=== PATIENT | female | born 1990 | race Caucasian/White ===

== ENCOUNTER 2021-09-24 10:32 | Emergency (ER) | payer OTHER, SELFPAY ==
[2021-09-24 10:44] VITALS: BP 131/74; PULSE 72; RESP 16; TEMP 36.1; O2SAT 100
--- NOTE | 2021-09-24 12:22 | ED.URI ---
HPI - URI/Sore Throat General Chief Complaint: Upper Respiratory Infection Stated Complaint: Sore Throat Source: patient and RN notes reviewed Mode of arrival: ambulatory History of Present Illness HPI Narrative: Patient presented for complaint of sore throat, sinus congestion, and nonproductive cough with associated fatigue for about 10 days. She states her symptoms worsened over the last 4 days. Endorses shortness of breath with exertion, fever, chills. She took an at home Covid test that was negative last week. Endorses positive sick contacts. She denies chest pain, nausea, vomiting, headache or dizziness. Related Data Home Medications Medication Instructions Recorded Confirmed sucralfate [Carafate] g 09/24/21 Allergies Allergy/AdvReac Type Severity Reaction Status Date / Time Penicillins Allergy Rash Verified 09/24/21 11:31 Sulfa (Sulfonamide Allergy Rash Verified 09/24/21 11:30 Antibiotics) Review of Systems Review of Systems: All systems reviewed & are unremarkable except as noted in HPI and below [facility] Family History Family History (Updated 09/24/21 @ 12:31 by Miranda De La Paz, SHWETA) Other Family history non-contributory Exam Narrative: GENERAL: Ill-appearing; no acute distress. HEAD: Normocephalic, atraumatic. EYES: EOMI. No redness or drainage. Conjunctivae normal. ENT: Mucous membranes pink and moist. Nares clear. Erythematous oropharynx NECK: Normal AROM. No lymphadenopathy. CHEST: No respiratory distress. Clear to auscultation. HEART: Regular rate and rhythm. No murmur appreciated. Normal peripheral pulses. ABDOMEN: Soft, nontender, nondistended MUSCULOSKELETAL: No bony tenderness. EXTREMITIES: Normal range of motion. No edema. SKIN: Warm, dry, no rash. Capillary refill normal. Normal skin turgor. NEURO: No focal deficits. Alert and oriented x3. Gait steady. PSYCH: Normal affect. No signs of depression or anxiety. Course Course Level of Care: Express Care Visit Vital Signs Vital signs: Vital Signs Temperature 96.9 F L 09/24/21 10:44 Pulse Rate 72 09/24/21 10:44 Respiratory Rate 16 09/24/21 10:44 Blood Pressure 131/74 09/24/21 10:44 Pulse Oximetry 100 09/24/21 10:44 Temperature 96.9 F L 09/24/21 10:44 Pulse Rate 72 09/24/21 10:44 Respiratory Rate 16 09/24/21 10:44 Blood Pressure 131/74 09/24/21 10:44 Pulse Oximetry 100 09/24/21 10:44 MDM - URI/Sore Throat MDM Narrative Medical decision making narrative: covid positive Patient is discharged with albuterol and steroids, instructions for supportive care. Lab Data Attestation: I reviewed the patient's lab results. Labs: Lab Results 09/24/21 Range/Units 11:32 POC SARS CoV-2 Ag Positive (Negative) Influenza A Screen Negative Reference Range: Negative Influenza A Screen Negative Reference Range: Negative Influenza B Screen Negative Reference Range: Negative Influenza B Screen Negative Reference Range: Negative Strep Screen Presumptive Negative *(Reference Range: Negative)* Strep Screen Presumptive Negative *(Reference Range: Negative)* Discharge Plan Discharge Clinical Impression: COVID-19 Patient Disposition: Home, Self-Care Condition: Stable Instructions: Antibiotic Form, COVID-19 (Coronavirus Disease 2019) (ED) Additional Instructions: You tested positive for Covid-19. We discussed quarantine and over the counter treatments. The following recommendations have been made by the CDC and local Health Departments, regarding COVID-19: Those individuals with mild cases of COVID-19 can generally be discontinu
== END 2021-09-24 13:03 | disposition home or self-care (01) ==
PROVIDERS: Emergency Provider Nurse Practitioner Family
DX: U07.1 COVID-19 (principal)
CPT/HCPCS: 87081; 87426; 87804; 87880; 99213; C9803; G0463

== ENCOUNTER 2021-12-06 17:16 | Emergency (ER) | payer OTHER, SELFPAY ==
--- NOTE | ~2021-12-06 | XR_ITS ---
XR wrist LT min 3V DATE: 12/06/2021 17:39 INDICATION: Fall down stairs. Lateral wrist pain TECHNIQUE: 4 views COMPARISON: None FINDINGS: No fracture or dislocation or other significant bony abnormality. IMPRESSION: Negative Reviewed, dictated and finalized at location A. IMPRESSION: Negative
[2021-12-06 17:25] VITALS: BP 126/75; PULSE 73; RESP 16; TEMP 36.9; O2SAT 100
--- NOTE | 2021-12-06 18:35 | ED.GENADULT ---
HPI - General Adult General Chief complaint: Extremity Injury, Upper Stated complaint: Left wrist injury Source: patient Mode of arrival: ambulatory Limitations: no limitations History of Present Illness HPI narrative: Patient presents for evaluation of left wrist pain. Symptom onset 1 month ago. She believes her pain started following an injury at work. 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 She did not seek medical attention hypertension but she was fine , although she did experience pain in the left wrist. Pain has been constant since that time. Pain is sharp, shooting, rated 6 out of 10 in severity, worse with movement. She is right-hand dominant. She does get numbness and tingling in the third, fourth, fifth digits of the left hand. She tried taking Tylenol with some improvement in her symptoms or after. She has been wearing a wrist splint for the last 10 days. She is hesitant to take oral NSAIDs due to potential implications on GI tract. Related Data Allergies Allergy/AdvReac Type Severity Reaction Status Date / Time Penicillins Allergy Rash Verified 12/06/21 17:30 Sulfa (Sulfonamide Allergy Rash Verified 12/06/21 17:30 Antibiotics) Review of Systems Review of Systems: CONSTITUTIONAL: Denies fever, chills, or sweats. EYES: Denies visual changes, redness, or discharge. ENT: Denies rhinorrhea, congestion, sore throat, or otalgia. CARDIOVASCULAR: Denies chest pain, palpitations, or edema. RESPIRATORY: Denies cough or dyspnea. GASTROINTESTINAL: Denies abdominal pain, nausea, vomiting, or diarrhea. GENITOURINARY: Denies dysuria or hematuria. SKIN: Denies rash or itching. MUSCULOSKELETAL: Reports left wrist pain. Denies back pain NEUROLOGIC: Denies headache, numbness, dizziness, or weakness. PSYCHIATRIC: Denies anxiety or depression. 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 HEAD: Normocephalic, atraumatic. EYES: PERRLA and EOMI. ENT: Nares clear, no rhinorrhea or epistaxis. Mucous membranes moist. Oropharynx without tonsillar hypertrophy exudate or other lesions. Bilateral TMs pearly cagle nonbulging NECK: Supple. No adenopathy or masses. No carotid bruits or JVD CHEST: Clear to auscultation. No respiratory distress. No wheezes rales or rhonchi HEART: Regular rate and rhythm. No murmur heard. Normal peripheral pulses. ABDOMEN: Soft, nontender, nondistended, normal active bowel sounds. EXTREMITIES: Tenderness noted to left wrist without crepitus or deformity. I do not appreciate any swelling. Full range of motion of the left wrist. 4 out of 5 hand cosmetics counter manager strength. 5 out of 5 hand cosmetics counter manager strength on the right. SKIN: Warm, dry, no rash. NEURO: No focal deficits. Alert and oriented x3. Positive Phalen's sign. Positive Tinel's sign PSYCH: Normal mood and affect. Course Course Emergency Course: This is a 30-year-old female that presented with complaints of left wrist pain. X-ray was negative for fracture. Exam seems consistent with tendinitis. However she does have positive Tinel and Phalen sign on exam. Advise she contact Ortho for an appointment. She will wear her wrist splint. She wanted to avoid oral NSAIDs we will give her topical
== END 2021-12-06 18:26 | disposition home or self-care (01) ==
PROVIDERS: Emergency Provider Nurse Practitioner
DX: M77.8 Other enthesopathies, not elsewhere classified (principal); F17.210 Nicotine dependence, cigarettes, uncomplicated; F12.90 Cannabis use, unspecified, uncomplicated
CPT/HCPCS: 73110; 99213; G0463